=== PATIENT | female | born 1940 | race Caucasian/White ===

== ENCOUNTER 2023-08-16 07:39 | Day surgery (SDC) | payer MEDICARE, OTHER, SELFPAY ==
[2023-08-16 08:40] VITALS: BMI 26.6
--- NOTE | 2023-08-16 08:45 | W.PM.H&PU ---
History & Physical Update History & Physical Update H&P Reviewed and patient assessed: No changes noted
[2023-08-16 08:50] VITALS: BP 116/81; PULSE 65; RESP 16; TEMP 36.1; O2SAT 98
[2023-08-16] MEDS: SODIUM CHLORIDE 0.9 % (FLUSH) 10 ML SYRINGE IVF (09:00)
[2023-08-16] MEDS: LACTATED RINGERS 1000 ML 1,000 ML 100 ML IV (09:00)
[2023-08-16] MEDS: fentaNYL 100 MCG/2 ML inj IVP (09:12)
[2023-08-16] MEDS: MIDAZOLAM HCL 1 MG/ML inj IVP (09:12)
[2023-08-16 09:13] VITALS: BP 123/76; PULSE 65; RESP 16; O2SAT 98
[2023-08-16 09:15] VITALS: BP 117/67; PULSE 62; RESP 16; TEMP 36.1; O2SAT 98
--- NOTE | 2023-08-16 09:23 | SUR.PREOP ---
TIME?OUT:?911 PT/RN/MDA?VERIFICATION?OF?SURGICAL?SITE,?PROCEDURE,?AND?CONSENT OBTAINED?PRIOR?TO?INVASIVE?PROCEDURE.
[2023-08-16] MEDS: CEFAZOLIN 2 GM in 0.9 % SODIUM CHLORIDE Mini-bag 100 ML IVPB (10:30)
[2023-08-16 11:10] VITALS: BP 116/74; PULSE 57; RESP 16; TEMP 36.1; O2SAT 98
[2023-08-16 11:30] VITALS: BP 116/73; PULSE 59; RESP 16; O2SAT 97
[2023-08-16 12:00] VITALS: BP 115/68; PULSE 60; RESP 16; O2SAT 97
--- NOTE | 2023-08-16 12:06 | W.ANESCHARGE ---
Anesthesia Charges Start Date/Time Anesthesia Start Date: 08/16/23 Anesthesia Start Time: 10:20 Stop Date/Time Anesthesia Stop Date: 08/16/23 Anesthesia Stop Time: 11:11 Summary Extremes of Age - Over 70 or under 1: MDA
--- NOTE | 2023-08-16 12:09 | P.NB_ITS ---
Nerve Block Nerve Block Time Seen by Provider: 09:17 Date Seen: 08/16/23 Type of block requested by surgeon for post-operative analgesia: axillary Side: left Time out performed: Yes Verification of patient name: Yes Verification of date of : Yes Site marking: site marked Name of person performing procedure: Kj Continuous monitoring Was continuous monitoring of O2 sat, B/P, bus driver/monitor, recorded every 15 minutes?: Yes Procedure Checklist: sterile prep, needles and gloves Ultrasound guided. Images saved: Yes Medications given in 5ml increments after negative aspiration: Ropivicaine %: 0.5 mL: 20 Needle gauge: 22 and Lidocaine %: 2 mL: 10 Patient tolerated procedure well: Yes Additional comments: Needle noted adjacent to nerve Block Charges Block Charge (with Pro Fee): Brachial Plexus Use of Ultrasound Machine for Block: Yes- US Guidance/pain block
--- NOTE | 2023-08-16 13:09 | W.ANESCHARGE ---
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
--- NOTE | 2023-08-17 08:02 | PM.ORPRC ---
Procedure Note Date of procedure: 08/16/23 Procedure: PREOPERATIVE DIAGNOSIS: 1. Left volar, radial wrist benign mass/cyst POSTOPERATIVE DIAGNOSIS: 1. Left volar, radial wrist benign cyst PROCEDURE: 1. Left volar, radial wrist benign cyst open excision SURGEON: Kendall Waldrop MD. KEEL PRESS OPERATOR: Torie Borges PA-C - Of note, an social media assistant was critical for this case to aid in patient positioning, tissue retraction, limb manipulation/positioning, patient safety, & closure. ANESTHESIA: Regional block plus MAC EBL: 5 mL IMPLANTS: None TOURNIQUET: 15 minutes at 225 torr COMPLICATIONS: None evident SPECIMENS: Left volar, radial wrist cyst INDICATIONS: The patient is a pleasant 83-year-old female who has experienced left volar, radial sided wrist mass/cyst development that has included pain and some dysfunction with progression. Nonoperative management has been tried but unsuccessful. Given the failure of nonoperative management, and how this affects daily life, surgery was recommended. DESCRIPTION OF PROCEDURE: Following a thorough discussion of risks, benefits, and alternatives consent was obtained and the operative extremity was marked. The patient was brought to the operating room and placed supine on the operating table. No antibiotics were administered as this was planned to be a local case only. Proper time-out was performed identifying proper patient, site, and procedure. The operative extremity was prepped and draped in the appropriate sterile fashion using ChloraPrep. The limb was exsanguinated and the tourniquet inflated. An incision was made on the volar aspect of the radial left wrist. Sharp incision through the skin, and blunt dissection through subcutaneous tissue allowed us to protect crossing neurologic structures. The cyst was quickly encountered. It was mobilized from the surrounding tissue. The radial artery was visualized and protected. The cyst had a stalk going down deep towards carpus from the volar aspect of the wrist. We were able to track this stalk to its depth and cauterize the base allowing us to remove the cyst. It was sent for permanent pathology. This appeared consistent with a ganglion cyst. At this stage, the tourniquet was deflated and hemostasis achieved. Closure was performed with 4-O nylon. Soft dressings were applied, and the patient was awoken/transferred to the recovery room in stable condition. PLAN: 1. Encourage elevation of the operative extremity. 2. Range of motion of the operative extremity/digits as tolerated. 3. Ibuprofen, acetaminophen and/or oxycodone as needed for pain. 4. Follow up with PA visit in 12-16 days for wound check and suture removal.
== END 2023-08-16 12:29 | disposition home or self-care (01) ==
PROVIDERS: PCP Family Medicine; Visit Provider Orthopaedic Surgery Sports Medicine
PROC: (CPT 25111; principal; 2023-08-16 09:45)
DX: M67.432 Ganglion, left wrist (principal); G89.18 Other acute postprocedural pain
CPT/HCPCS: 25111; 01810; 64415; 76942; 88304; 99100; J0690; J2250; J2405; J2704; J2795; J3010; J7120